=== PATIENT | female | born 1930 | race Hispanic/Latino ===

== ENCOUNTER 2017-08-15 20:28 | Inpatient (IN) | payer MEDICARE ==
[~2017-08-15] VITALS: Ht 149.9 cm; Wt 59.6 kg
[~2017-08-15 20:28] MED LIST: ACET-66 PO; ALPR0.255 PO; AMLO5TAB2 PO; CALC1TAB2 PO; CLON.1 PO; ESOM40CA PO; EZET1TAB21 PO; GUAI118S23 PO; INSLAN SQ; INSU100I15 SQ; NAPR-1023 PO; NEBI10TA PO; SIME125C PO; SITA100T12 PO
[2017-08-15] MEDS ORDERED: IPRATROPIUM/ALBUTEROL SULFATE 3 ML SOLUTION IH ONE (22:40)
[2017-08-15 23:01] LABS: HEMATOCRIT 34.1 % (36-48); LYMPHOCYTES % (AUTO) 12.7 % (21.0-51.0); MEAN CORPUSCULAR HEMOGLOBIN 27.7 pg (27.0-33.0); MEAN CORPUSCULAR VOLUME 83.8 fL (79-99); MONOCYTES % (AUTO) 5.4 % (3.0-13.0); NEUTROPHILS % (AUTO) 74.9 % (40.0-77.0); PLATELET COUNT (AUTO) 234 K/uL (130-400); RED BLOOD CELL COUNT(AUTO) 4.07 MIL/uL (4.00-5.50); RED CELL DISTRIBUTION WIDTH 13.9 % (11.0-15.5); WHITE BLOOD COUNT (AUTO) 11.2 K/uL (4.8-10.8)
[2017-08-15 23:14] LABS: CREATININE 0.5 mg/dL (0.5-1.5); POTASSIUM 3.4 mmol/L (3.5-5.1)
[2017-08-15 23:19] LABS: BILIRUBIN,TOTAL 0.5 mg/dL (0.2-1.0); TOTAL PROTEIN, SERUM 7.7 g/dL (6.0-8.3)
[2017-08-15 23:46] LABS: CREATINE KINASE MB 0.5 ng/mL (0.5-3.6); CREATINE KINASE, TOTAL 60 U/L (21-232); MYOGLOBIN 30 ng/mL (10-92); TROPONIN I < 0.04 ng/mL (0.00-0.06)
[2017-08-16] MEDS ORDERED: METHYLPREDNISOLONE SOD SUCC 125MG/2ML VIAL ONE (00:32)
[2017-08-16] MEDS ORDERED: AZITHROMYCIN 500MG+NS 250ML 250 ML IV ONE (00:32)
[2017-08-16] MEDS ORDERED: POTASSIUM CHLORIDE 20MEQ/100ML 100 ML IV PRN (02:15)
[2017-08-16] MEDS ORDERED: ZOLPIDEM TARTRATE 5 MG TAB PO PRN (02:15)
[2017-08-16] MEDS ORDERED: NITROGLYCERIN 0.4 MG SL TAB SL PRN (02:15)
[2017-08-16] MEDS ORDERED: LACTULOSE 20 GM/30 ML UDCUP PO PRN (02:15)
[2017-08-16] MEDS ORDERED: DIPHENHYDRAMINE HCL 25 MG CAPSULE PO PRN (02:15)
[2017-08-16] MEDS ORDERED: ACETAMINOPHEN 325 MG TAB PO PRN (02:15)
[2017-08-16] MEDS ORDERED: SODIUM CHLORIDE 0.9% 10 ML VIAL IVP SCH (02:15)
[2017-08-16] MEDS ORDERED: LIDOCAINE HCL-MPF 1% 2ML VIAL IJ PRN (02:15)
[2017-08-16] MEDS ORDERED: DiphenhydrAMINE HCL 50 MG/ML VIAL IVP PRN (02:15)
[2017-08-16] MEDS ORDERED: GLUCAGON 1MG KIT 1 MG ML IM PRN (02:15)
[2017-08-16] MEDS ORDERED: DEXTROSE 50%-WATER 50 ML DISP.SYRIN IV PRN (02:15)
[2017-08-16] MEDS ORDERED: CLONIDINE HCL 0.1 MG TABLET PO PRN (02:15)
[2017-08-16] MEDS: INSULIN R NPO SS1 SQ SCH ×3 (06:00→18:00)
[2017-08-16] MEDS ORDERED: IPRATROPIUM/ALBUTEROL SULFATE 3 ML SOLUTION IH ONE ×3 (06:03→14:31)
[2017-08-16 06:43] LABS: BASOPHILS % (AUTO) 0.3 % (0.0-5.0); EOSINOPHILS % (AUTO) 0.3 % (0.0-8.0); LYMPHOCYTES % (AUTO) 16.3 % (21.0-51.0); MEAN CORPUSCULAR HEMOGLOBIN 28.2 pg (27.0-33.0); MEAN CORPUSCULAR HGB CONC 33.5 g/dL (32.0-36.0); MEAN CORPUSCULAR VOLUME 84.2 fL (79-99); MONOCYTES % (AUTO) 1.5 % (3.0-13.0); NEUTROPHILS % (AUTO) 81.6 % (40.0-77.0); PLATELET COUNT (AUTO) 167 K/uL (130-400); RED BLOOD CELL COUNT(AUTO) 4.16 MIL/uL (4.00-5.50); RED CELL DISTRIBUTION WIDTH 13.7 % (11.0-15.5); WHITE BLOOD COUNT (AUTO) 10.7 K/uL (4.8-10.8)
[2017-08-16 07:02] LABS: CREATININE 0.6 mg/dL (0.5-1.5); POTASSIUM 3.5 mmol/L (3.5-5.1)
[2017-08-16 07:09] LABS: BILIRUBIN,TOTAL 0.6 mg/dL (0.2-1.0); TOTAL PROTEIN, SERUM 7.6 g/dL (6.0-8.3)
[2017-08-16] MEDS: INSULIN R PO SSI SQ SCH ×4 (07:30→20:16)
[2017-08-16] MEDS ORDERED: INSULIN HUMULIN R 100 UNIT/ML 3ML ONE ×3 (08:18→12:41)
[2017-08-16] MEDS: FAMOTIDINE 20MG TAB 20 MG TAB PO SCH ×2 (09:00→20:14)
[2017-08-16] MEDS: METHYLPREDNISOLONE SOD SUCC 40MG/ML 1ML IVP SCH ×2 (09:00→20:13)
[2017-08-16] MEDS ORDERED: SITA100T12 PO (15:44)
[2017-08-16] MEDS ORDERED: SERT50TA12 PO (15:44)
[2017-08-16] MEDS ORDERED: LINA145C PO (15:44)
[2017-08-16] MEDS ORDERED: LORA10TA7 PO (15:44)
[2017-08-16] MEDS ORDERED: AMLO5TAB2 PO (15:44)
[2017-08-16] MEDS ORDERED: CALC1TAB2 PO (15:44)
[2017-08-16] MEDS ORDERED: GABA-531 PO (15:44)
[2017-08-16] MEDS ORDERED: BUDE10.2 IH (15:44)
[2017-08-16] MEDS ORDERED: SUCR1TAB2 PO (15:44)
[2017-08-16] MEDS ORDERED: ATOR20TA65 PO (15:44)
[2017-08-16] MEDS ORDERED: NEBI10TA PO (15:44)
[2017-08-16] MEDS ORDERED: NITR100C9 PO (15:44)
[2017-08-16 15:52] VITALS: BP 159/63
[2017-08-16] MEDS: FUROSEMIDE 20 MG TABLET PO SCH (16:20)
[2017-08-16] MEDS ORDERED: DEXL30CA3 PO (16:29)
[2017-08-16] MEDS: IPRATROPIUM/ALBUTEROL SULFATE 3 ML SOLUTION IH SCH ×2 (18:48→22:12)
[2017-08-16 20:00] VITALS: BP 156/78
[2017-08-16] MEDS: AZITHROMYCIN 500MG+NS 250ML 250 ML IV SCH (20:14)
[2017-08-16] MEDS ORDERED: GABAPENTIN 300 MG CAPSULE PO PRN (22:45)
[2017-08-16] MEDS: POTASSIUM CHLORIDE 20 MEQ ERTAB PO PRN (23:01)
[2017-08-16 23:09] LABS: APPEARANCE,URINE Clear (CLEAR); BILIRUBIN,URINE Negative (NEGATIVE); COLOR,URINE Yellow (YELLOW); GLUCOSE, URINE (UA) >=1000 mg/dL (NEGATIVE); KETONES,URINE Negative (NEGATIVE); LEUKOCYTE ESTERASE ,URINE Negative (NEGATIVE); NITRATE,URINE Negative (NEGATIVE); OCCULT BLOOD,URINE Negative (NEGATIVE); PH,URINE 5.5 (5.0-8.0); PROTEIN,URINE POS 1+ (NEGATIVE); UROBILINOGEN,URINE 0.2 mg/dL (0.2-1.0)
[2017-08-16 23:18] LABS: BACTERIA,URINE None Seen /HPF (None Seen); MUCUS,URINE Rare LPF (None Seen); RBC,URINE 0-1 /HPF (0-1); SQUAMOUS EPITHELIAL CELL,UR Few /HPF (0-2); WBC,URINE 0-1 /HPF (0-1)
[2017-08-16] MEDS: ACETAMINOPHEN 325 MG TAB PO PRN (23:59)
[2017-08-17] VITALS: BP 164/67
[2017-08-17] MEDS: IPRATROPIUM/ALBUTEROL SULFATE 3 ML SOLUTION IH SCH ×6 (02:18→22:04)
[2017-08-17 04:00] VITALS: BP 150/53
[2017-08-17 06:16] LABS: HEMATOCRIT 32.3 % (36-48); MEAN CORPUSCULAR HEMOGLOBIN 29.2 pg (27.0-33.0); MEAN CORPUSCULAR HGB CONC 34.4 g/dL (32.0-36.0); PLATELET COUNT (AUTO) 164 K/uL (130-400); RED CELL DISTRIBUTION WIDTH 13.6 % (11.0-15.5); WHITE BLOOD COUNT (AUTO) 10.6 K/uL (4.8-10.8)
[2017-08-17] MEDS: PANTOPRAZOLE SODIUM 40 MG TABLET.DR PO SCH (06:17)
[2017-08-17] MEDS: INSULIN R PO SSI SQ SCH ×4 (06:19→20:53)
[2017-08-17 06:29] LABS: CREATININE 0.6 mg/dL (0.5-1.5); POTASSIUM 3.9 mmol/L (3.5-5.1)
[2017-08-17 08:00] VITALS: BP 158/56
[2017-08-17] MEDS: AMLODIPINE BESYLATE 5 MG TAB PO SCH (08:29)
[2017-08-17] MEDS: CALCIUM 600 + VITAMIN D 400 TABLET PO SCH ×2 (08:29→16:13)
[2017-08-17] MEDS: LORATADINE 10 MG TABLET PO SCH (08:29)
[2017-08-17] MEDS: LINAGLIPTIN 5 MG TABLET PO SCH (08:29)
[2017-08-17] MEDS: SUCRALFATE 1 GM TABLET PO SCH ×3 (08:29→16:13)
[2017-08-17] MEDS: FAMOTIDINE 20MG TAB 20 MG TAB PO SCH ×2 (08:30→20:04)
[2017-08-17] MEDS: FUROSEMIDE 20 MG TABLET PO SCH ×2 (08:30→16:13)
[2017-08-17] MEDS: SERTRALINE HCL 50 MG TABLET PO SCH (08:30)
[2017-08-17] MEDS: METHYLPREDNISOLONE SOD SUCC 40MG/ML 1ML IVP SCH (08:31)
[2017-08-17] MEDS: NEBIVOLOL HCL 5 MG TABLET PO SCH (08:42)
[2017-08-17] MEDS: ***HM***Linaclotide (Linzess) 145 MCG PO SCH (08:43)
[2017-08-17] MEDS: FLUTICASONE/VILANTEROL 1 EACH BLST.W.DEV IH SCH (09:00)
[2017-08-17 11:00] VITALS: BP 156/67
[2017-08-17 16:00] VITALS: BP 157/65
[2017-08-17 20:00] VITALS: BP 163/72
[2017-08-17] MEDS: ATORVASTATIN CALCIUM 20 MG TABLET PO SCH (20:04)
[2017-08-17] MEDS: AZITHROMYCIN 500MG+NS 250ML 250 ML IV SCH (20:05)
[2017-08-17] MEDS: ACETAMINOPHEN 325 MG TAB PO PRN (23:21)
[2017-08-18] VITALS (7 sets, daily range): BP systolic 143–164; BP diastolic 55–69
[2017-08-18] MEDS: IPRATROPIUM/ALBUTEROL SULFATE 3 ML SOLUTION IH SCH ×4 (01:59→23:23)
[2017-08-18] MEDS: PANTOPRAZOLE SODIUM 40 MG TABLET.DR PO SCH (05:59)
[2017-08-18 06:18] LABS: CREATININE 0.6 mg/dL (0.5-1.5); POTASSIUM 3.4 mmol/L (3.5-5.1)
[2017-08-18] MEDS: INSULIN R PO SSI SQ SCH ×4 (06:19→21:28)
[2017-08-18] MEDS: POTASSIUM CHLORIDE 20 MEQ ERTAB PO PRN (06:27)
[2017-08-18] MEDS: AMLODIPINE BESYLATE 5 MG TAB PO SCH (07:44)
[2017-08-18] MEDS: PREDNISONE 20 MG TABLET PO SCH (07:44)
[2017-08-18] MEDS: LORATADINE 10 MG TABLET PO SCH (07:44)
[2017-08-18] MEDS: FAMOTIDINE 20MG TAB 20 MG TAB PO SCH ×2 (07:44→21:31)
[2017-08-18] MEDS: SUCRALFATE 1 GM TABLET PO SCH ×3 (07:44→16:58)
[2017-08-18] MEDS: CALCIUM 600 + VITAMIN D 400 TABLET PO SCH ×2 (07:44→16:59)
[2017-08-18] MEDS: FUROSEMIDE 20 MG TABLET PO SCH ×2 (07:44→16:59)
[2017-08-18] MEDS: LINAGLIPTIN 5 MG TABLET PO SCH (07:44)
[2017-08-18] MEDS: SERTRALINE HCL 50 MG TABLET PO SCH (07:44)
[2017-08-18] MEDS: NEBIVOLOL HCL 5 MG TABLET PO SCH (07:45)
[2017-08-18] MEDS: ***HM***Linaclotide (Linzess) 145 MCG PO SCH (08:03)
[2017-08-18] MEDS: SIMETHICONE 80 MG TAB.CHEW PO SCH ×2 (10:50→16:58)
[2017-08-18] MEDS: ENOXAPARIN SODIUM 30 MG/0.3 ML SQ SCH (10:52)
[2017-08-18] MEDS: FLUTICASONE/VILANTEROL 1 EACH BLST.W.DEV IH SCH (10:52)
[2017-08-18] MEDS: GABAPENTIN 300 MG CAPSULE PO SCH ×2 (11:42→21:31)
[2017-08-18] MEDS: AZITHROMYCIN 500MG+NS 250ML 250 ML IV SCH (21:31)
[2017-08-18] MEDS: ATORVASTATIN CALCIUM 20 MG TABLET PO SCH (21:31)
[2017-08-18] MEDS: GUAIFENESIN SUGAR-FREE 100 MG/5 ML UDCUP PO PRN (23:53)
[2017-08-18] MEDS: ACETAMINOPHEN 325 MG TAB PO PRN (23:54)
[2017-08-19 03:42] VITALS: BP 154/60
[2017-08-19 03:50] LABS: MEAN CORPUSCULAR HEMOGLOBIN 28.9 pg (27.0-33.0); MEAN CORPUSCULAR HGB CONC 34.3 g/dL (32.0-36.0); MEAN CORPUSCULAR VOLUME 84.3 fL (79-99); NUCLEATED RED BLOOD CELLS 0.1 % (0.0-0.19); PLATELET COUNT (AUTO) 194 K/uL (130-400); RED BLOOD CELL COUNT(AUTO) 3.68 MIL/uL (4.00-5.50); RED CELL DISTRIBUTION WIDTH 13.8 % (11.0-15.5); WHITE BLOOD COUNT (AUTO) 11.6 K/uL (4.8-10.8)
[2017-08-19 04:15] LABS: CREATININE 0.6 mg/dL (0.5-1.5); POTASSIUM 3.4 mmol/L (3.5-5.1)
[2017-08-19] MEDS: IPRATROPIUM/ALBUTEROL SULFATE 3 ML SOLUTION IH SCH (06:45)
[2017-08-19] MEDS: INSULIN R PO SSI SQ SCH ×2 (07:09→12:14)
[2017-08-19] MEDS: PANTOPRAZOLE SODIUM 40 MG TABLET.DR PO SCH (07:09)
[2017-08-19] MEDS: SIMETHICONE 80 MG TAB.CHEW PO SCH ×2 (07:09→12:06)
[2017-08-19] MEDS: SUCRALFATE 1 GM TABLET PO SCH ×2 (07:09→12:06)
[2017-08-19 08:00] VITALS: BP 149/70
[2017-08-19] MEDS: LINAGLIPTIN 5 MG TABLET PO SCH (08:11)
[2017-08-19] MEDS: ENOXAPARIN SODIUM 30 MG/0.3 ML SQ SCH (08:11)
[2017-08-19] MEDS: NEBIVOLOL HCL 5 MG TABLET PO SCH (08:12)
[2017-08-19] MEDS: LORATADINE 10 MG TABLET PO SCH (08:12)
[2017-08-19] MEDS: AMLODIPINE BESYLATE 5 MG TAB PO SCH (08:12)
[2017-08-19] MEDS: FAMOTIDINE 20MG TAB 20 MG TAB PO SCH (08:12)
[2017-08-19] MEDS: CALCIUM 600 + VITAMIN D 400 TABLET PO SCH (08:12)
[2017-08-19] MEDS: FUROSEMIDE 20 MG TABLET PO SCH (08:12)
[2017-08-19] MEDS: PREDNISONE 20 MG TABLET PO SCH (08:12)
[2017-08-19] MEDS: SERTRALINE HCL 50 MG TABLET PO SCH (08:12)
[2017-08-19] MEDS: GABAPENTIN 300 MG CAPSULE PO SCH (08:12)
[2017-08-19] MEDS: ***HM***Linaclotide (Linzess) 145 MCG PO SCH (08:13)
[2017-08-19] MEDS: GUAIFENESIN SUGAR-FREE 100 MG/5 ML UDCUP PO PRN (08:18)
[2017-08-19] MEDS: POTASSIUM CHLORIDE 10% ELIXIR 20 MEQ/15 ML UDCUP PO PRN ×2 (08:28→12:06)
[2017-08-19] MEDS ORDERED: FLUTICASONE/VILANTEROL 1 EACH BLST.W.DEV IH SCH (09:55)
[2017-08-19 11:54] VITALS: BP 145/62
[2017-08-19] MEDS ORDERED: ALBUTEROL SULFATE 0.083% 2.5 MG/3 ML INH IH SCH (12:00)
[2017-08-19] MEDS ORDERED: BUDESONIDE 0.5 MG/2 ML INH IH SCH (18:00)
== END 2017-08-19 14:55 | disposition home or self-care (01) | DRG 190 ==
LOC: EDH 20:28 → EDHIP 08-16 00:28 → OBSVTOIN 08-16 00:28 → 3BH 08-16 15:03
PROVIDERS: ADMIT Family Medicine; ATTEND Family Medicine
DX: J44.1 Chronic obstructive pulmonary disease with (acute) exacerbation (principal); J81.0 Acute pulmonary edema; J84.10 Pulmonary fibrosis, unspecified; E11.9 Type 2 diabetes mellitus without complications; N39.0 Urinary tract infection, site not specified; E87.6 Hypokalemia; I10 Essential (primary) hypertension; E78.5 Hyperlipidemia, unspecified; F32.9 Major depressive disorder, single episode, unspecified; Z90.710 Acquired absence of both cervix and uterus; Z88.0 Allergy status to penicillin; Z88.8 Allergy status to other drugs, medicaments and biological substances
CPT/HCPCS: 36415; 71045; 71046; 71250; 80048; 80053; 81001; 82550; 82553; 82948; 83874; 83880; 84484; 85025; 85027; 87040; 87088; 87186; 93005; 93306; 94640; 94664; 99291; J0456; J1650; J1815; J2920; J2930

== ENCOUNTER → 2018-02-23 | Outpatient (CLI) | payer MEDICARE ==
[~2018-02-23] MED LIST changes: -ALPR0.255 PO; -AMLO5TAB2 PO; +ATOR20TA65 PO; +BUDE10.2 IH; -CLON.1 PO; +DEXL30CA3 PO; -ESOM40CA PO; -EZET1TAB21 PO; +GABA-531 PO; -GUAI118S23 PO; -INSU100I15 SQ; +LINA145C PO; -NAPR-1023 PO; +SERT50TA12 PO; +SUCR1TAB2 PO
== END | disposition home or self-care (01) ==
LOC: RAH 15:48
PROVIDERS: ATTEND Family Medicine
DX: Z12.31 Encounter for screening mammogram for malignant neoplasm of breast (principal); I10 Essential (primary) hypertension; E78.5 Hyperlipidemia, unspecified; J44.9 Chronic obstructive pulmonary disease, unspecified; Z90.710 Acquired absence of both cervix and uterus
CPT/HCPCS: 77067

== ENCOUNTER 2019-10-15 15:56 | Emergency (ER) | payer MEDICARE ==
[2019-10-15] MEDS ORDERED: OXYMETAZOLINE HCL SPRAY 15 ML BOTTLE ONE (16:29)
== END 2019-10-15 18:28 | disposition home or self-care (01) ==
LOC: EDH 15:56
DX: R04.0 Epistaxis (principal); I10 Essential (primary) hypertension; E11.9 Type 2 diabetes mellitus without complications; E78.5 Hyperlipidemia, unspecified; Z88.0 Allergy status to penicillin; Z88.1 Allergy status to other antibiotic agents; Z88.6 Allergy status to analgesic agent; Z90.710 Acquired absence of both cervix and uterus; Z90.49 Acquired absence of other specified parts of digestive tract
CPT/HCPCS: 30901

== ENCOUNTER 2021-12-10 17:19 | Emergency (ER) | payer MEDICARE ==
[~2021-12-10] VITALS: Ht 157.5 cm; Wt 74.8 kg
[~2021-12-10 17:19] MED LIST changes: +SERT-439 PO; -SERT50TA12 PO
[2021-12-10 17:48] LABS: BASOPHILS % (AUTO) 0.5 % (0.0-5.0); EOSINOPHILS % (AUTO) 0.5 % (0.0-8.0); HEMATOCRIT 36.2 % (36-48); LYMPHOCYTES % (AUTO) 19.7 % (21.0-51.0); MEAN CORPUSCULAR HEMOGLOBIN 29.6 pg (27.0-33.0); MEAN CORPUSCULAR HGB CONC 34.3 g/dL (32.0-36.0); MEAN CORPUSCULAR VOLUME 86.4 fL (79-99); MONOCYTES % (AUTO) 4.7 % (3.0-13.0); NEUTROPHILS % (AUTO) 73.9 % (40.0-77.0); PLATELET COUNT (AUTO) 167 K/uL (130-400); RED BLOOD CELL COUNT(AUTO) 4.19 MIL/uL (4.00-5.50); WHITE BLOOD COUNT (AUTO) 8.1 K/uL (4.8-10.8)
[2021-12-10] MEDS ORDERED: NIFEDIPINE 10 MG CAP PO ONE (18:00)
[2021-12-10] MEDS ORDERED: ONDANSETRON 4MG INJ IVP ONE (18:00)
[2021-12-10 18:01] LABS: CREATININE 0.8 mg/dL (0.5-1.5); POTASSIUM 3.2 mmol/L (3.5-5.1)
[2021-12-10 18:09] LABS: ALBUMIN 3.9 g/dL (3.5-5.0); BILIRUBIN,TOTAL 0.4 mg/dL (0.2-1.0); TOTAL PROTEIN, SERUM 8.3 g/dL (6.0-8.3)
[2021-12-10 18:18] LABS: APPEARANCE,URINE CLEAR (CLEAR); BILIRUBIN,URINE NEGATIVE (NEGATIVE); COLOR,URINE YELLOW (YELLOW); GLUCOSE, URINE (UA) 100 mg/dL (NEGATIVE); KETONES,URINE NEGATIVE (NEGATIVE); LEUKOCYTE ESTERASE ,URINE MODERATE (NEGATIVE); NITRATE,URINE NEGATIVE (NEGATIVE); OCCULT BLOOD,URINE TRACE-INTACT (NEGATIVE); PROTEIN,URINE TRACE mg/dL (NEGATIVE); UROBILINOGEN,URINE 0.2 mg/dL (0.2-1.0)
[2021-12-10 18:24] LABS: BACTERIA,URINE Few /HPF (None Seen)
[2021-12-10 18:25] LABS: SQUAMOUS EPITHELIAL CELL,UR Few /HPF (0-2)
[2021-12-10] MEDS ORDERED: POTASSIUM BICARB/CIT AC 25 MEQ TABLET.EFF PO ONE (19:00)
[2021-12-10] MEDS ORDERED: NITROFURANTOIN MONOHYD/M-CRYST 100 MG CAPSULE PO ONE ×2 (19:00→20:06)
[2021-12-10] MEDS ORDERED: POTA-187 PO (19:05)
[2021-12-10] MEDS ORDERED: ONDA4TAB10 PO (19:05)
[2021-12-10] MEDS ORDERED: MACR100 PO (19:05)
[2021-12-10] MEDS ORDERED: POTASSIUM BICARB/CIT AC 25 MEQ TABLET.EFF ONE (20:06)
[2021-12-10 20:07] VITALS: BP 217/69
== END 2021-12-10 20:09 | disposition home or self-care (01) ==
LOC: EDH 17:19
DX: N39.0 Urinary tract infection, site not specified (principal); I10 Essential (primary) hypertension; E11.9 Type 2 diabetes mellitus without complications; E87.6 Hypokalemia; Z20.822 Contact with and (suspected) exposure to COVID-19; I25.10 Atherosclerotic heart disease of native coronary artery without angina pectoris; E78.00 Pure hypercholesterolemia, unspecified; Z88.0 Allergy status to penicillin; Z88.1 Allergy status to other antibiotic agents; Z88.8 Allergy status to other drugs, medicaments and biological substances; Z79.899 Other long term (current) drug therapy; Z79.84 Long term (current) use of oral hypoglycemic drugs
CPT/HCPCS: 99285; 96374; 71045; 87635; 84484; 80053; 85025; 87088; 87804 ×2; 81001; 36415; 93005; C9803; J2405